=== PATIENT | male | born 1960 | race Caucasian/White ===

== ENCOUNTER → 2016-09-09 | Outpatient (CLI) | payer OTHER, BC ==
--- NOTE | 2016-09-09 11:33 | XR ---
Thoracic spine HISTORY: Low back pain 3 views of the thoracic spine correlated to lumbar spine same date There is an associated thoracic scoliosis. Multilevel spondylosis is present. Thoracic vertebral body height and alignment. Bone mineralization is maintained. Disc spaces are maintained. IMPRESSION: Scoliosis, degenerative disc disease..
--- NOTE | 2016-09-09 11:43 | XR ---
EXAMINATION TYPE: XR lumbosacral spine min 4V DATE OF EXAM ORDERED: 09/09/2016 11:04 AM HISTORY: M54.5 low back pain. COMPARISON: None. FINDINGS: Vertebral body alignment is maintained. There is mild wedging of the T12 vertebral body, l ikely developmental. There is hypertrophic spondylosis at T12-L1 and L1-2. There is mild facet arthro horacio in the lower lumbar facets. The pedicles are intact. IMPRESSION: 1. NO ACUTE OSSEOUS LESION. 2. DEGENERATIVE CHANGE.
== END | disposition home or self-care (01) ==
LOC: RADXRMAIN 10:36
PROVIDERS: ATTEND Nurse Practitioner Family
DX: M51.34 Other intervertebral disc degeneration, thoracic region (principal); M41.84 Other forms of scoliosis, thoracic region; M47.817 Spondylosis without myelopathy or radiculopathy, lumbosacral region
CPT/HCPCS: 72072; 72110

== ENCOUNTER → 2016-10-26 | Outpatient (CLI) | payer OTHER, BC ==
[2016-10-26 08:17] LABS: Basophils % (A) 1 %; CH 31.1; CHCM 33.9; Eosinophils # (A) 0.2 k/uL (0-0.7); Eosinophils % (A) 4 %; HCT 43.8 % (39.0-53.0); HDW 2.27; HGB 14.7 gm/dL (13.0-17.5); Luc # (Auto) 0.15; Luc % (Auto) 3; Lymphocytes # (A) 0.8 k/uL (1.0-4.8); Lymphocytes % (A) 15 %; MCHC 33.6 g/dL (31.0-37.0); MCV 92.3 fL (80.0-100.0); Mean Platelet Volume 7.2; Monocytes # (A) 0.3 k/uL (0-1.0); Monocytes % (A) 5 %; Neutrophils # (A) 4.3 k/uL (1.3-7.7); Neutrophils % (A) 74 %; RBC 4.74 m/uL (4.30-5.90); RDW 13.3 % (11.5-15.5); WBC 5.8 k/uL (3.8-10.6); WBC (Perox) 5.55
[2016-10-26 08:21] LABS: ALT 41 U/L (21-72); AST 22 U/L (17-59); Alkaline Phosphatase 62 U/L (38-126); Anion Gap 10 mmol/L; Blood Urea Nitrogen 18 mg/dL (9-20); Calcium 9.8 mg/dL (8.4-10.2); Carbon Dioxide 25 mmol/L (22-30); Chloride 107 mmol/L (98-107); Cholesterol 126 mg/dL (<200); Glucose 101 mg/dL (74-99); HDL Cholesterol 49 mg/dL (40-60); Non-African American GFR(MDRD) >60 (>60 ml/min/1.73 sqM); Potassium 4.6 mmol/L (3.5-5.1); Sodium 142 mmol/L (137-145); Total Bilirubin 0.6 mg/dL (0.2-1.3); Total Protein 6.8 g/dL (6.3-8.2); Triglycerides 75 mg/dL (<150)
[2016-10-26 08:47] LABS: Prostate Specific Antigen 0.91 ng/mL (0.00-4.00)
== END | disposition home or self-care (01) ==
LOC: LABWHC1 07:22
PROVIDERS: ATTEND Radiology Radiation Oncology
DX: Z00.00 Encounter for general adult medical examination without abnormal findings (principal); C61 Malignant neoplasm of prostate
CPT/HCPCS: 36415; 80053; 80061; 84153; 84439; 84443; 85025

== ENCOUNTER → 2018-05-16 | Outpatient (CLI) | payer OTHER, BC ==
[2018-05-16 10:29] LABS: Basophils # (A) 0.1 k/uL (0-0.2); Basophils % (A) 1 %; Eosinophils # (A) 0.4 k/uL (0-0.7); Eosinophils % (A) 4 %; HCT 48.7 % (39.0-53.0); HGB 16.5 gm/dL (13.0-17.5); Lymphocytes # (A) 1.4 k/uL (1.0-4.8); Lymphocytes % (A) 18 %; MCH 31.5 pg (25.0-35.0); MCHC 33.9 g/dL (31.0-37.0); MCV 92.9 fL (80.0-100.0); Mean Platelet Volume 7.1; Monocytes # (A) 0.3 k/uL (0-1.0); Monocytes % (A) 4 %; Neutrophils # (A) 5.8 k/uL (1.3-7.7); Neutrophils % (A) 72 %; Platelet Count 238 k/uL (150-450); RBC 5.24 m/uL (4.30-5.90); RDW 13.2 % (11.5-15.5); WBC 8.1 k/uL (3.8-10.6)
[2018-05-16 16:48] LABS: Albumin 4.5 g/dL (3.80-4.90); Albumin/Globulin Ratio 2.25 (1.20-2.10); Anion Gap 5.9 mmol/L (4.00-12.00); Calcium 9.8 mg/dL (8.7-10.3); Carbon Dioxide 29.1 mmol/L (21.6-31.8); LDL Cholesterol,Calculated 69.6 mg/dL (0.0-131.0); Potassium 4.6 mmol/L (3.5-5.5); Total Bilirubin 0.5 mg/dL (0.3-1.2); Total Protein 6.5 g/dL (6.2-8.2); VLDL Calculation 13.4 mg/dL (5.00-40.00)
[2018-05-16 16:55] LABS: T4, Free (Free Thyroxine) 1.5 ng/dL (0.80-1.80)
== END | disposition home or self-care (01) ==
LOC: LABWHC1 09:48
PROVIDERS: ATTEND Radiology Radiation Oncology
DX: C61 Malignant neoplasm of prostate (principal); I10 Essential (primary) hypertension; Z11.59 Encounter for screening for other viral diseases
CPT/HCPCS: 36415; 80053; 80061; 84153; 84439; 84443; 85025; 86803

== ENCOUNTER 2018-12-30 09:18 | Day surgery (SDC) | payer OTHER, BC ==
[2018-12-28 16:39] VITALS: BMI 33.4
--- NOTE | 2018-12-30 08:26 | P.GSHP ---
History of Present Illness H&P Date: 12/30/18 CHIEF COMPLAINT: Colon screen HISTORY OF PRESENT ILLNESS: The patient is a 58-year-old male who presents for colon screen. Lower endoscopy was offered for further evaluation and management. PAST MEDICAL HISTORY: Please see list. PAST SURGICAL HISTORY: Please see list. MEDICATIONS: Please see list. ALLERGIES: Please see list. SOCIAL HISTORY: No illicit drug use FAMILY HISTORY: No reports of Crohn disease or ulcerative colitis. REVIEW OF ORGAN SYSTEMS: CONSTITUTIONAL: No reports of fevers or chills. PHYSICAL EXAM: VITAL SIGNS: Stable GENERAL: Well-developed pleasant in no acute distress. HEENT: No scleral icterus. Extraocular movements grossly intact. Moist buccal mucosa. NECK: Supple without lymphadenopathy. CHEST: Unlabored respirations. Equal bilateral excursions. CARDIOVASCULAR: Regular rate and rhythm. Distal 2+ pulses. ABDOMEN: Soft, nontender, nondistended. MUSCULOSKELETAL: No clubbing, cyanosis, or edema. ASSESSMENT: 1. Colon screen. PLAN: 1. Recommend proceeding with a lower endoscopy Past Medical History Past Medical History: Cancer, Hyperlipidemia, Hypertension, Prostate Disorder, Thyroid Disorder Additional Past Medical History / Comment(s): hx- PROSTATE CANCER , RECEIVED RADIATION [place] 2016, History of Any Multi-Drug Resistant Organisms: None Reported Past Surgical History: Orthopedic Surgery Additional Past Surgical History / Comment(s): FX FEMUR WITH EDNA AND THEN REMOVAL, closed reduction left wrist, Past Anesthesia/Blood Transfusion Reactions: No Reported Reaction Smoking Status: Current every day smoker - Past Family History Mother Family Medical History: Cancer Additional Family Medical History / Comment(s): OF CANCER-BREAST CANCER WITH METS. Father Family Medical History: Cancer Additional Family Medical History / Comment(s): SKIN CANCER Medications and Allergies Home Medications Medication Instructions Recorded Confirmed Type Atorvastatin [Lipitor] 20 mg PO DAILY 05/24/16 12/28/18 History Levothyroxine Sodium [Synthroid] 150 mcg PO DAILY 05/24/16 12/28/18 History Lisinopril [Zestril] 10 mg PO DAILY 05/24/16 12/28/18 History Allergies Allergy/AdvReac Type Severity Reaction Status Date / Time No Known Allergies Allergy Verified 12/28/18 16:29
[~2018-12-30 09:18] MED LIST: LACTATED RINGERS 1,000 ML IV SCH; LIDOCAINE 1% 20 ML VIAL (10MG/ML) FOR IV START INTRADERMA PRN
[2018-12-30 09:39] VITALS: RESP 16; TEMP 98.8
[2018-12-30] MEDS ORDERED: PROPOFOL 10 MG/ML 20 ML VIAL IV ONE (10:32)
[2018-12-30 11:14] VITALS: BP 107/73; PULSE 64
--- NOTE | 2018-12-30 11:29 | P.PCN ---
Date of Procedure: 12/30/18 Description of Procedure: PREOPERATIVE DIAGNOSIS: Colonoscopy screening, first POSTOPERATIVE DIAGNOSIS: Colonoscopy screening, first Descending colon adenoma Sigmoid colon polyps Ulcerative colitis OPERATION: Colonoscopy to the ileocecal valve and appendiceal orifice. Colonoscopy with multiple hot snare polypectomies Colonoscopy with multiple cold forceps biopsies. Colonoscopy with injection of Shawna ink 4 mL at mid transverse colon SURGEON: Nisha Corcoran MD. ANESTHESIA: MAC. INDICATIONS: The patient is a 58-year-old male who presents for his first colonoscopy screening. Benefits and risks were described and informed consent was obtained. DESCRIPTION OF PROCEDURE: The patient had undergone Suprep. He had been brought into the operating room and laid in the left lateral decubitus position. The prostatic fossa was unremarkable. After adequate intravenous sedation, the rectum was examined with 2% lidocaine jelly. No external hemorrhoids were encountered. The rectal tone was within normal limits. No lesions were palpated in the rectal vault. An Olympus colonoscope was advanced until the ileocecal valve and appendiceal orifice were clearly viewed. The prep was fair with visualization of the mucosal folds. The scope was removed with visualization of each mucosal fold. No scattered diverticulosis was encountered. Large ulceration about 30 cm circumference was found in the mid transverse colon with biopsies obtained including injection of Shawna ink, 4 mL. Additional ulceration at 50 cm was found also biopsied. Multiple colonic polyps were found and cold forcep biopsy or snare polypectomy. Retroflexion of the scope demonstrated grade 1 internal hemorrhoids without active bleeding or inflammation. The colon was desufflated. The patient had tolerated the procedure well. Withdrawal time was over 6 minutes. FINDINGS: Aronchick preparation quality scale 2 (1-5) Internal hemorrhoids, grade 1 No external hemorrhoids, grade 2. No arteriovenous malformations. Large ulceration about 30 cm circumference was found in the mid transverse colon with biopsies obtained including injection of Shawna ink, 4 mL. Additional superficial ulceration at 50 cm was found also biopsied. Removal of 3 polyps: - Snare polypectomy 30 cm from the anal verge, 8 mm tubulovillous adenoma polyp. - Cold forceps biopsy at 15 cm from the anal verge, 3 mm polyp. - Cold forceps biopsy at 20 cm from the anal verge, 4 mm polyp. No focal colitis. RECOMMENDATIONS: Given severity of tubular adenomas, recommend repeat colonoscopy 1 year, 2020 Recommend referral to [facility] for treatment of ulcerative colitis Plan - Discharge Summary Discharge Rx Participant: Yes New Discharge Prescriptions: No Action Lisinopril [Zestril] 10 mg PO DAILY Atorvastatin [Lipitor] 20 mg PO DAILY Levothyroxine Sodium [Synthroid] 150 mcg PO DAILY Discharge Medication List Atorvastatin [Lipitor] 20 mg PO DAILY 05/24/16 [History] Levothyroxine Sodium [Synthroid] 150 mcg PO DAILY 05/24/16 [History] Lisinopril [Zestril] 10 mg PO DAILY 05/24/16 [History] Follow up Appointment(s)/Referral(s): Silvina Pina MD [STAFF PHYSICIAN] - As Needed Nisha Corcoran MD [STAFF PHYSICIAN] - 01/19/19 Patient Instructions/Handouts: *Surgery [facility] - (Anesthesia) Endoscopy Discharge Instructions, Ulcerative Colitis (GEN), Colorectal Polyps (DC), Ulcerative Colitis (DC), Colorectal Polyps (GEN) Activity/Diet/Wound Care/Special Instructions: Repeat colonoscopy in one year, 2019. Discharge Disposition: HOME SELF-CARE
== END 2018-12-30 12:07 | disposition home or self-care (01) ==
LOC: ORWHC2ENDO 09:18
PROVIDERS: ATTEND Surgery Plastic and Reconstructive Surgery
DX: Z12.11 Encounter for screening for malignant neoplasm of colon (principal); K64.8 Other hemorrhoids; K51.90 Ulcerative colitis, unspecified, without complications; D12.0 Benign neoplasm of cecum; D12.3 Benign neoplasm of transverse colon; D12.4 Benign neoplasm of descending colon; D12.5 Benign neoplasm of sigmoid colon; I10 Essential (primary) hypertension; E78.5 Hyperlipidemia, unspecified; E07.9 Disorder of thyroid, unspecified; Z85.46 Personal history of malignant neoplasm of prostate; Z80.3 Family history of malignant neoplasm of breast; Z79.890 Hormone replacement therapy; Z79.899 Other long term (current) drug therapy; F17.210 Nicotine dependence, cigarettes, uncomplicated
CPT/HCPCS: 88305; 45380; 45385; 44404; J2704

== ENCOUNTER → 2022-03-21 | Outpatient (CLI) | payer BC ==
--- NOTE | 2022-03-21 07:04 | CTL ---
EXAMINATION TYPE: CT Low Dose Lung DATE OF EXAM ORDERED: 03/21/2022 HISTORY: Long-term tobacco use. Lung cancer screening CT DLP: 137.[address] CTDI: 3.7 mGy Automated exposure control for dose reduction was used. SCREENING VISIT: Baseline COMPARISON: None TECHNIQUE: Low dose computed tomography scan was performed through the chest at 1 mm thick sections a nd reconstructed images in multiple planes at 1 mm and [address] DIAGNOSTIC QUALITY: Satisfactory FINDINGS: LUNG NODULES: None. LUNGS: COPD: Severity: None Fibrosis: Severity: None Lymph nodes: None Other findings: None RIGHT PLEURAL SPACE: Effusion: None Calcification: None Thickening: None Pneumothorax: None LEFT PLEURAL SPACE: Effusion: None Calcification: None Thickening: None Pneumothorax: None HEART: Heart Size: Normal Coronary Calcification: Small Pericardial Effusion: None OTHER FINDINGS: Upper abdomen: None Bony thorax: Slight scoliotic curvature with mild multilevel spurring. Supraclavicular region: Hypoplastic or small size thyroid, correlate clinically. Other: None IMPRESSION: No suspicious nodules. CT LUNG RAD AND CT CHEST RECOMMENDATION: Lung-Rad 1 Negative: Continue annual screening with LDCT in 12 months. S Modifier (other clinically significant findings): None
== END | disposition home or self-care (01) ==
LOC: RADCTMAIN 06:22
PROVIDERS: ATTEND Family Medicine
DX: Z12.2 Encounter for screening for malignant neoplasm of respiratory organs (principal); Z87.891 Personal history of nicotine dependence
CPT/HCPCS: 71271

== ENCOUNTER 2022-04-29 07:58 | Day surgery (SDC) | payer BC, OTHER ==
[2022-04-24 09:56] VITALS: BMI 32.8
[~2022-04-29 07:58] MED LIST changes: -LIDOCAINE 1% 20 ML VIAL (10MG/ML) FOR IV START INTRADERMA PRN
--- NOTE | 2022-04-29 07:59 | P.GSHP ---
History of Present Illness H&P Date: 04/29/22 CHIEF COMPLAINT: Colon screen HISTORY OF PRESENT ILLNESS: The patient is a 62-year-old male who presents for colon screen. Lower endoscopy was offered for further evaluation and management. PAST MEDICAL HISTORY: Please see list. PAST SURGICAL HISTORY: Please see list. MEDICATIONS: Please see list. ALLERGIES: Please see list. SOCIAL HISTORY: No illicit drug use FAMILY HISTORY: No reports of Crohn disease or ulcerative colitis. REVIEW OF ORGAN SYSTEMS: CONSTITUTIONAL: No reports of fevers or chills. PHYSICAL EXAM: VITAL SIGNS: Stable GENERAL: Well-developed pleasant in no acute distress. HEENT: No scleral icterus. Extraocular movements grossly intact. Moist buccal mucosa. NECK: Supple without lymphadenopathy. CHEST: Unlabored respirations. Equal bilateral excursions. CARDIOVASCULAR: Regular rate and rhythm. Distal 2+ pulses. ABDOMEN: Soft, nontender, nondistended. MUSCULOSKELETAL: No clubbing, cyanosis, or edema. ASSESSMENT: 1. Colon screen. PLAN: 1. Recommend proceeding with a lower endoscopy Past Medical History Past Medical History: Cancer, Hyperlipidemia, Hypertension, Prostate Disorder, Thyroid Disorder Additional Past Medical History / Comment(s): hx- PROSTATE CANCER , RECEIVED RADIATION [place] 2016, History of Any Multi-Drug Resistant Organisms: None Reported Past Surgical History: Orthopedic Surgery Additional Past Surgical History / Comment(s): FX FEMUR WITH EDNA AND THEN REMOVAL, closed reduction left wrist, COLONOSCOPY Past Anesthesia/Blood Transfusion Reactions: No Reported Reaction Additional Past Anesthesia/Blood Transfusion Reaction / Comment(s): unk family hx Smoking Status: Current every day smoker - Past Family History Mother Family Medical History: Cancer Additional Family Medical History / Comment(s): OF CANCER-BREAST CANCER WITH METS. Father Family Medical History: Cancer Additional Family Medical History / Comment(s): SKIN CANCER Medications and Allergies Home Medications Medication Instructions Recorded Confirmed Type Atorvastatin [Lipitor] 20 mg PO DAILY 05/24/16 04/24/22 History Levothyroxine Sodium [Synthroid] 150 mcg PO QAM 05/24/16 04/24/22 History lisinopriL [Zestril] 10 mg PO QAM 05/24/16 04/24/22 History Allergies Allergy/AdvReac Type Severity Reaction Status Date / Time No Known Allergies Allergy Verified 04/24/22 09:50
[2022-04-29] MEDS ORDERED: LACTATED RINGERS 1,000 ML IV ONE (08:25)
[2022-04-29 08:27] VITALS: TEMP 97.4
[2022-04-29] MEDS ORDERED: PROPOFOL 10 MG/ML 20 ML VIAL IV ONE (09:23)
--- NOTE | 2022-04-29 09:53 | P.PCN ---
Date of Procedure: 04/29/22 Description of Procedure: PREOPERATIVE DIAGNOSIS: Personal history colon polyps POSTOPERATIVE DIAGNOSIS: Personal history colon polyps OPERATION: Colonoscopy to the cecum, ileocecal valve and appendiceal orifice. SURGEON: Nisha Corcoran MD. ANESTHESIA: MAC. INDICATIONS: The patient is a 62-year-old male who presents with recent pedis no resection of large colon adenoma, multiple resected 6 months ago. He presents for further polyp removal. Benefits and risks were described and informed consent was obtained. DESCRIPTION OF PROCEDURE: The patient had undergone Sutab prep. The patient had been brought into the operating room and laid in the left lateral decubitus position. After adequate i ntravenous sedation, the rectum was examined with 2% lidocaine jelly. No external hemorrhoids were encountered. The rectal tone was within normal limits. No lesions were palpated in the rectal vault. An Olympus colonoscope was advanced until the cecum, ileocecal valve and appendiceal orifice were clearly viewed. The prep was excellent. No scattered diverticulosis was encountered. No colonic polyps were found. No evidence of focal colitis was found. Retroflexion of the scope demonstrated grade 1 internal hemorrhoids without active bleeding or inflammation. The colon was desufflated. The patient had tolerated the procedure well. Withdrawal time was over 6 minutes. FINDINGS: Aronchick preparation quality scale 1 (1-5) Internal hemorrhoids, grade 1 No external prolapsed hemorrhoids. No arteriovenous malformations. No adenomatous polyps. No focal colitis. RECOMMENDATIONS: Lower endoscopy in 3 2024 due to high risk colon polyp. Plan - Discharge Summary Discharge Rx Participant: No New Discharge Prescriptions: Continue lisinopriL [Zestril] 10 mg PO QAM Atorvastatin [Lipitor] 20 mg PO DAILY Levothyroxine Sodium [Synthroid] 150 mcg PO QAM Discharge Medication List Atorvastatin [Lipitor] 20 mg PO DAILY 05/24/16 [History] Levothyroxine Sodium [Synthroid] 150 mcg PO QAM 05/24/16 [History] lisinopriL [Zestril] 10 mg PO QAM 05/24/16 [History] Follow up Appointment(s)/Referral(s): Nisha Corcoran MD [STAFF PHYSICIAN] - As Needed Patient Instructions/Handouts: Colonoscopy (DC) Activity/Diet/Wound Care/Special Instructions: Repeat colonoscopy 3 years, 2024 Discharge Disposition: HOME SELF-CARE
[2022-04-29 10:18] VITALS: BP 138/82; PULSE 63; RESP 18
== END 2022-04-29 10:50 | disposition home or self-care (01) ==
LOC: ORWHC2ENDO 07:58
PROVIDERS: ATTEND Surgery Plastic and Reconstructive Surgery
DX: Z12.11 Encounter for screening for malignant neoplasm of colon (principal); I10 Essential (primary) hypertension; E78.5 Hyperlipidemia, unspecified; N42.9 Disorder of prostate, unspecified; E07.9 Disorder of thyroid, unspecified; Z86.010 Personal history of colon polyps; Z85.46 Personal history of malignant neoplasm of prostate; F17.200 Nicotine dependence, unspecified, uncomplicated; Z80.3 Family history of malignant neoplasm of breast; Z80.8 Family history of malignant neoplasm of other organs or systems; Z79.899 Other long term (current) drug therapy
CPT/HCPCS: 45378; J2704